=== PATIENT | female | born 1945 | race Caucasian/White ===

== ENCOUNTER 2017-07-29 05:31 | Emergency (ER) | payer OTHER ==
[~2017-07-29] VITALS: Ht 167.6 cm; Wt 54.0 kg
[2017-07-29] MEDS ORDERED: PHOS667C5 PO (06:03)
[2017-07-29] MEDS ORDERED: FISH100049 PO (06:03)
[2017-07-29] MEDS ORDERED: COLA100C5 PO (06:03)
[2017-07-29] MEDS ORDERED: VITA100T88 PO (06:03)
[2017-07-29] MEDS ORDERED: FOLI1TAB4 PO (06:03)
[2017-07-29] MEDS ORDERED: VITA1CAP2 PO (06:03)
[2017-07-29] MEDS ORDERED: AMLO5TAB2 PO (06:03)
[2017-07-29] MEDS ORDERED: ALBU17IN2 INH (06:03)
[2017-07-29] MEDS ORDERED: FERR325T3 PO (06:03)
[2017-07-29] MEDS ORDERED: ASPI-156 PO (06:03)
[2017-07-29] MEDS ORDERED: MULT1TAB10 PO (06:03)
[2017-07-29] MEDS ORDERED: SODI325T9 PO (06:03)
[2017-07-29] MEDS ORDERED: METO37.5 PO (06:03)
[2017-07-29] MEDS ORDERED: ROCA0.25 PO (06:03)
[2017-07-29] MEDS ORDERED: HYOS0.1248 SL (06:03)
[2017-07-29] MEDS ORDERED: NITR3TA SL (06:03)
[2017-07-29] MEDS ORDERED: HYDR-3713 PO (06:03)
[2017-07-29] MEDS ORDERED: VITA500C24 PO (06:03)
[2017-07-29] MEDS ORDERED: POTA20TA FT (06:03)
[2017-07-29] MEDS ORDERED: OMEP40CA2 PO (06:03)
[2017-07-29] MEDS ORDERED: LASI40TA PO (06:03)
[2017-07-29] MEDS ORDERED: MIRA3350 PO (07:51)
[2017-07-29] MEDS ORDERED: GLYCADSU PR (07:51)
[2017-07-29 07:55] VITALS: BP 176/73
[2017-07-29] MEDS ORDERED: GLYCERIN ADULT SUPP PR ONE (08:00)
--- NOTE | 2017-07-29 08:16 | REP ---
Abdominal series: Three views. History: Constipation. Findings: Upright chest radiograph shows no evidence of infiltrate or free subdiaphragmatic air. Heart is not enlarged. The patient is status post prior sternotomy. There is some increased density in the left lower lobe posteromedially behind the heart suggesting pleural fluid and/or infiltrate. There are no comparison studies. Supine and erect views of the abdomen show moderate right colonic and some left colonic stool. No rectal distension is seen. No small or large bowel dilation is observed. No significant air fluid level. No evidence of free air. No mass, organomegaly. Vascular calcification is noted. Impression: No acute abdominal abnormality. Moderate stool. Increased density behind the heart in the left base, question infiltrate, atelectasis, versus pleural fluid. Signed by Cheo Dominguez MD 07/29/2017 02:37 P
== END 2017-07-29 08:12 | disposition home or self-care (01) ==
LOC: M ED 05:31
DX: K59.00 Constipation, unspecified (principal); R10.84 Generalized abdominal pain; I25.2 Old myocardial infarction; I10 Essential (primary) hypertension; I25.10 Atherosclerotic heart disease of native coronary artery without angina pectoris; K21.9 Gastro-esophageal reflux disease without esophagitis; Z95.1 Presence of aortocoronary bypass graft; F17.200 Nicotine dependence, unspecified, uncomplicated; Z79.82 Long term (current) use of aspirin; Z79.899 Other long term (current) drug therapy; Z88.1 Allergy status to other antibiotic agents; Z88.2 Allergy status to sulfonamides; Z91.018 Allergy to other foods